=== PATIENT | female | born 1940 | race Caucasian/White ===

== ENCOUNTER → 2021-01-20 | Outpatient (CLI) | payer MEDICARE ==
[2019-09-17 07:00] VITALS: BP 139/61
--- NOTE | 2021-01-20 15:54 | RAD ---
EXAMINATION: Ultrasound-guided fine-needle aspiration of an inferior right thyroid nodule, 01/20/2021 10:11 AM CLINICAL INDICATION: Right thyroid nodule COMPARISON: Thyroid ultrasound 12/27/2020 FINDINGS/TECHNIQUE: The purpose of the procedure, and risks and benefits were explained to the patient. Informed consent was obtained. A timeout was performed. Initial ultrasound images identified the inferior right thyroid nodule. The skin overlying the patien t's right neck was marked, prepped, and draped in standard sterile fashion. Skin and subcutaneous sof t tissue were anesthetized with 1% lidocaine. Next, using continuous ultrasound guidance, four 25-gau ge fine-needle aspiration samples were obtained of the thyroid nodule and given to the slabbing machine operator for analysis. The skin was cleansed and covered with a dressing. The patient tolerated the procedure well and left in stable condition. IMPRESSION: Technically successful, ultrasound-guided fine needle aspiration of inferior right thyroid nodule. Electronically signed by: Celena Machuca MD (01/20/2021 3:52 PM) [id number]
== END | disposition home or self-care (01) ==
LOC: US 10:12
PROVIDERS: ATTEND Registered Nurse
DX: E04.1 Nontoxic single thyroid nodule (principal); M19.90 Unspecified osteoarthritis, unspecified site; K21.9 Gastro-esophageal reflux disease without esophagitis; Z79.899 Other long term (current) drug therapy; Z98.890 Other specified postprocedural states
CPT/HCPCS: 10005